=== PATIENT | female | born 1970 | race Caucasian/White ===

== ENCOUNTER 2016-11-30 09:07 | Emergency (ER) | payer OTHER ==
[2016-11-30 09:26] VITALS: RESP 18
[2016-11-30] MEDS ORDERED: IBUPROFEN 600 MG TAB PO ONE (09:58)
--- NOTE | 2016-11-30 10:21 | UCPHY ---
H & P Time Seen by Provider: 11/30/16 09:30 Patient Type: New HPI/ROS: CHIEF COMPLAINT: Headache HISTORY OF PRESENT ILLNESS: A 46-year-old female states she has had a upper respiratory infection for the last week. Symptoms of some sinus congestion, runny nose, stuffy nose. Most of the symptoms have resolved, however, she now has developed a headache on the right temporal area as well as discomfort in her right ear, behind her ear, the right side of her throat. She reports a palpable lymph node in the right side of her neck. She has had no fever. No complaints of neck pain, numbness or tingling in arms or legs, chest pain, shortness of breath, palpitations, double vision, speech difficulty, lightheadedness, dizziness, fainting, weakness, or head injury. She has had ear infections in the past. REVIEW OF SYSTEMS: Aside from elements discussed in the HPI, a comprehensive 10-point review of systems was reviewed and is negative. PAST MEDICAL HISTORY: Denies. SOCIAL HISTORY: Nonsmoker. VITAL SIGNS Reviewed by me. GENERAL: Well-developed, well-nourished, looks well, conversant, HEENT: Atraumatic. Mild tenderness over the right jew. No erythema, swelling, or rash. Eyes: PERRL, EOMI, no nystagmus. No icterus. No injection. TMs: Clear bilaterally. Mouth: moist mucous membranes. No erythema or lesions. Neck: No meningitis. Nontender to palpation. Small lymph node palpable on the right anterior neck. Negative Kernig's. Negative Brudzinski's. No meningismus. LUNGS: Clear to auscultation bilaterally, no wheezes, rhonchi or rales. CARDIAC: Regular rate and rhythm, no rubs, murmurs or gallops. ABDOMEN: Soft, nontender, nondistended, bowel sounds normal. EXTREMITIES: No trauma. No edema. Range of motion is normal throughout. NEURO: Alert and oriented, cranial nerves II through XII are intact. Motor strength 5 over 5 in all major muscle groups. Sensation intact to light touch. Normal gait. SKIN: Warm and dry, no rash. PSYCHIATRIC: Normal mentation, no agitation. Smoking Status: Never smoked Constitutional: Initial Vital Signs Temperature (C) 36.6 C 11/30/16 09:24 Heart Rate 69 11/30/16 09:24 Respiratory Rate 18 11/30/16 09:24 Blood Pressure 151/86 H 11/30/16 09:24 O2 Sat (%) 98 11/30/16 09:24 O2 Delivery Mode Room Air Allergies/Adverse Reactions: No Known Allergies Allergy (Unverified 11/30/16 09:23) Home Medications: Medication Instructions Recorded Amoxicillin Trihydrate 500 mg PO BID 7 Days 11/30/16 [Amoxicillin] HCTZ (*) 11/30/16 Zantac 11/30/16 Medical Decision Making - Diagnostics Imaging: Results: CT scan of the head was obtained. I viewed the images independently on the PACS system. I discussed the results of the study with the radiologist. Impression: Very mild right maxillary sinusitis. No air-fluid level. Mastoids are clear. Please see the full radiology report. ED Course/Re-evaluation: 46-year-old female with right-sided headache pain including pain in the right ear, right jew, right mastoid area, right-sided throat pain. CT scan demonstrates very mild maxillary sinusitis, no air-fluid level. TM is clear. Mastoids are clear. ESR was sent to evaluate for potential temporal arteritis. This was normal. Patient will be discharged with Flonase nasal spray to help open the sinuses, antibiotic for sinusitis, pain medications as needed. Differential Diagnosis: After history was obtained, and the physical exam performed, a differential for headache was considered including, but not limited to, subarachnoid hemorrhage, migraine headache, tension headache and infectious causes such as meningitis, sinusitis, encephalitis. - Data Points Laboratory Results: Laboratory Results 11/30/16 10:32 11/30/16 10:32 Hct 44.0 % % (38.0-47.0) ESR 12 MM/HR MM/HR (0-20) Medications Given: Discontinued Medications Ibuprofen (Motrin) 600 mg PO EDNOW ONE Stop: 11/30/16 09:59 Last Admin: 11/30/16 10:25 Dose: 600 mg Departure - Departure Disposition: Home, Routine, Self-Care Clinical Impression: Headache Qualifiers: Headache type: other headache syndrome Qualified Code(s): G44.89 - Other headache syndrome Condition: Good Instructions: Sinusitis (ED), Acute Headache (ED) Additional Instructions: CT scan demonstrates very mild sinus disease. I suggest that you obtain a Flonase nasal spray in use this as directed. I recommend Ibuprofen (Motrin, Advil) or Naproxen Sodium (Aleve) for pain and anti-inflammatory effects. You may take either one, but do not take both. Your dose is: Ibuprofen 600 mg every 6-8 hours with food. OR Naproxen Sodium (Aleve) 220 mg every 12 hours. May begin taking the amoxicillin as directed. Referrals: Rufina Herbert MD [Primary Care Provider] - As per Instructions Prescriptions: Amoxicillin Trihydrate [Amoxicillin] 500 mg PO BID 7 Days - PQRS PQRS Measurement: Not applicable
[2016-11-30 11:00] VITALS: BP 141/74; PULSE 81; TEMP 98.6; O2SAT 95
== END 2016-11-30 11:04 | disposition home or self-care (01) ==
LOC: CED 09:07
DX: G44.89 Other headache syndrome (principal)
CPT/HCPCS: 70450-PO; 85652-PO; 99203-PO; G0463-PO

== ENCOUNTER 2017-10-27 11:18 | Emergency (ER) | payer OTHER ==
[2017-10-27 11:35] VITALS: RESP 18
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
[2017-10-27 13:33] VITALS: BP 112/90; PULSE 85; TEMP 98.2; O2SAT 93
== END 2017-10-27 13:33 | disposition home or self-care (01) ==
DX: S16.1XXA Strain of muscle, fascia and tendon at neck level, initial encounter (principal); S39.92XA Unspecified injury of lower back, initial encounter; I10 Essential (primary) hypertension; V49.50XA Passenger injured in collision with unspecified motor vehicles in traffic accident, initial encounter; Y92.410 Unspecified street and highway as the place of occurrence of the external cause